=== PATIENT | male | born 2000 | race Two or more races ===

== ENCOUNTER → 2025-04-13 | Outpatient (CLI) | payer MEDICAID, SELFPAY ==
--- NOTE | 2025-04-13 16:17 | XR_ITS ---
Examination: Right wrist 2 views TECHNIQUE: AP lateral right wrist 2 views Date and time: April 13, 2025 1649 hours INDICATIONS: Injury to wrist one week ago with persistent wrist pain. FINDINGS: No fracture or dislocation. No foreign body. IMPRESSION: No fracture dislocation.
--- NOTE | 2025-04-13 16:17 | XR_ITS ---
Examination: Knee, left , 3 views Technique: Knee AP, lateral, oblique 3 views Date and time of exam: April 13, 2025, 1631 hours INDICATIONS: Injury to the knee one week ago, knee pain FINDINGS: No fracture or dislocation. No foreign body IMPRESSION: No fracture or dislocation.
--- NOTE | 2025-04-13 16:17 | XR_ITS ---
EXAMINATION: Ankle, 3 views . Technique: Ankle AP, oblique, lateral 3 views Date and time of exam: April 13, 2025 1631 hours INDICATIONS: Injured ankle one week ankle pain. FINDINGS: No acute ankle fracture Lateral malleolar soft tissue swelling. Ankle dislocation. IMPRESSION: No acute ankle fracture.
== END | disposition home or self-care (01) ==
PROVIDERS: PCP Nurse Practitioner Primary Care; Referring Provider Nurse Practitioner Primary Care; Visit Provider Nurse Practitioner Primary Care
DX: S99.911A Unspecified injury of right ankle, initial encounter (principal); S89.92XA Unspecified injury of left lower leg, initial encounter; S69.91XA Unspecified injury of right wrist, hand and finger(s), initial encounter; X58.XXXA Exposure to other specified factors, initial encounter
CPT/HCPCS: 73100; 73562; 73610